=== PATIENT | male | born 1995 | race Caucasian/White ===

== ENCOUNTER 2017-09-25 16:00 | Emergency (ER) | payer BC ==
[2017-09-25] MEDS ORDERED: BABY ASPIRIN 81 MG CHEW PO ONE (16:08)
[2017-09-25 16:15] LABS: BASOPHIL % 0.2 % (0.0-0.4); Basophil (Absolute #) 0.02 (0-0.4); Eosinophil % 1.5 % (0.00-5.0); Eosinophil (Absolute #) 0.13 (0-0.5); Granulocyte Absolute (ANC) 6.28 (1.4-6.9); Granulocytes % 72.2 % (36.0-66.0); Hematocrit 46.9 % (42-50); Hemoglobin 15.8 gm/dl (12.5-18.0); Lymphocyte (Absolute #) 1.62 (1.0-4.6); Lymphocytes % 18.6 % (24.0-44.0); Mean Cell Volume 80.6 fl (78-100); Mean Corpuscular Hemoglobin 27.1 pg (26-32); Mean Corpuscular Hgb Concent. 33.7 g/dl (32-36); Mean Platelet Volume 12.1 fl (6-9.5); Monocyte (Absolute #) 0.65 (0.0-1.3); Monocytes % 7.5 % (0.0-12.0); Platelet Count 212 K/mm3 (150-450); Red Blood Count 5.82 M/mm3 (4.1-5.6); Red Cell Distribution Width 13.7 % (11.5-14.0); White Blood Count 8.7 K/mm3 (4.0-10.5)
[2017-09-25 16:27] LABS: INR 1.09 (0.8-3.0)
[2017-09-25 16:30] LABS: PTT 31.6 SECONDS (24.1-36.1)
[2017-09-25] MEDS ORDERED: BABY ASPIRIN 81 MG CHEW ONE (16:31)
[2017-09-25 16:32] LABS: D-DIMER QUANTITATION < 215 ng/mL (215-500)
[2017-09-25 16:37] LABS: ALBUMIN 5.3 g/dL (3.5-5.0); ALKALINE PHOSPHATASE 84 U/L (38-126); ANION GAP 18.4 MEQ/L (5-15); BLOOD UREA NITROGEN 12 mg/dL (9-20); CHLORIDE 103 mmol/L (98-107); Carbon Dioxide 27 mmol/L (22-30); Creatinine 1 0.92 mg/dL (0.66-1.25); Glucose 116 mg/dL (74-106); Potassium 3.9 mmol/L (3.5-5.1); SGOT/AST 33 U/L (17-59); SGPT/ALT 23 U/L (0-50); SODIUM 144 mmol/L (137-145); Total Protein 8.7 g/dL (6.3-8.2)
--- NOTE | 2017-09-25 16:37 | ERPHSYRPT ---
- History of Present Illness Time Seen by Provider: 09/25/17 16:29 Historian: patient Exam Limitations: no limitations Patient Subjective Stated Complaint: PT HERE FOR CHEST PAIN TO EPIGASTRIC AREA SINCE 0900 THIS MORNING WHILE PT WAS FISHING, HE STATES PAIN IT NOT ANY BETTER AND NOW HAS SOME SOB WITH IT, Triage Nursing Assessment: PT ALERT, WALKED IN, RESP EASY, CHEST CLEAR, ABD SOFT , PAIN IS REPRODUCABLE WITH PALAPTION Physician History: 22-year-old white male with history of high blood pressure migraines asthma Arrives with complaint of pain in the epigastric area sharp worse with moving and breathing associated with shortness of breath and nausea symptoms since 9: 30 this morning while he was fishing. He states he is feeling somewhat better now. Past medical history includes migraines, asthma, high blood pressure. Past surgical history includes tonsillectomy. Social history includes occasional alcohol use. Timing/Duration: today (9:30 today) Activities at Onset: other (fishing) Quality: sharpness Location: substernal, epigastric Chest Pain Radiation: no radiation Severity of Pain-Max: moderate Severity of Pain-Current: mild Modifying Factors: Improves With: breathing, movement, palpation, other (deep breathing) Associated Symptoms: nausea, abdominal pain (epigastric pain), shortness of breath, No vomiting, No palpitations, No heartburn, No cough, No hurts to breathe, No diaphoresis, No chills, No fever, No fatigue, No weakness, No swelling/lump in chest, No syncope, No rash, No headache, No dizziness, No edema , No back pain Prior Chest Pain/Cardiac Workup: no prior chest pain Nitro Today/Relief: no nitro taken today Aspirin Treatment Today: 81 mg x 4, provided by ED Allergies/Adverse Reactions: No Known Drug Allergies Allergy (Verified 09/25/17 16:22) Home Medications: Lisinopril 1 ea DAILY 09/25/17 [History] Hx Tetanus, Diphtheria Vaccination/Date Given: No Hx Influenza Vaccination/Date Given: No Hx Pneumococcal Vaccination/Date Given: No Immunizations Up to Date: Yes - Review of Systems Constitutional: No Fever, No Chills Eyes: No Symptoms Ears, Nose, & Throat: No Symptoms Respiratory: No Cough, No Dyspnea Cardiac: Chest Pain (epigastric pain) Abdominal/Gastrointestinal: Abdominal Pain (epigastric pain), Nausea, No Vomiting, No Diarrhea, No Constipation, No Hematemesis, No Hematochezia, No Melena, No Dysphagia, No Appetite Changes Genitourinary Symptoms: No Dysuria Musculoskeletal: No Back Pain, No Neck Pain Skin: No Rash Neurological: No Dizziness, No Focal Weakness, No Sensory Changes Psychological: No Symptoms All Other Systems: Reviewed and Negative - Past Medical History Pertinent Past Medical History: Yes Neurological History: Migraines History: Other Other Medical History: ASTHMA - Past Surgical History Past Surgical History: Yes Neuro Surgical History: No Pertinent History Cardiac: No Pertinent History Respiratory: No Pertinent History Gastrointestinal: No Pertinent History Genitourinary: No Pertinent History Musculoskeletal: No Pertinent History Male Surgical History: No Pertinent History Other Surgical History: TONSILS - Social History Smoking Status: Never smoker Exposure to second hand smoke: Yes Drug Use: none Patient Lives Alone: No - Nursing Vital Signs Nursing Vital Signs: Initial Vital Signs Temperature 97.8 F 09/25/17 16:00 Pulse Rate 100 H 09/25/17 16:00 Respiratory Rate 16 09/25/17 16:00 Blood Pressure 161/98 09/25/17 16:00 O2 Sat by Pulse Oximetry 98 09/25/17 16:00 Pain Scale Pain Intensity 3 - Physical Exam General Appearance: mild distress Eye Exam: PERRL/EOMI, eyes nml inspection Ears, Nose, Throat Exam: normal ENT inspection, moist mucous membranes Neck Exam: normal inspection, non-tender, supple, full range of motion Respiratory Exam: normal breath sounds, lungs clear, No respiratory distress Cardiovascular Exam: regular rate/rhythm, normal heart sounds, normal peripheral pulses Gastrointestinal/Abdomen Exam: soft, normal bowel sounds, tenderness ( epigastric tenderness), No distention, No mass, No guarding, No ecchymosis, No pulsatile mass, No rebound, No hernia, No hepatomegaly Back Exam: normal inspection, No CVA tenderness, No vertebral tenderness Extremity Exam: normal inspection, normal range of motion Neurologic Exam: alert, oriented x 3, cooperative, route inspector II-XII nml as tested, normal mood/affect, sensation nml, No motor deficits, No sensory deficit Skin Exam: normal color, warm, dry SpO2 Interpretation: normal (98%) SpO2: 98 Oxygen Delivery: Room Air - Course Nursing assessment & vital signs reviewed: Yes EKG Interpreted by Me: RATE (99 bpm), Sinus Rhythm, NORMAL AXIS, Other (EKG: Sinus rhythm, 99 beats per minute, right axis deviation, no acute ST or T wave changes noted) - Radiology Exams Chest X-ray Interpretation: Interpreted by me, No Pneumonia, No Pneumothorax Ordered Tests: Active Orders 24 hr Category Date Time Status Cash Person STAT Care 09/25/17 16:09 Active EKG-ER Only STAT Care 09/25/17 16:08 Active IV Insertion STAT Care 09/25/17 16:08 Active Pulse Oximetry (ED) STAT Care 09/25/17 16:08 Active CHEST 1 VIEW (PORTABLE) Stat Exams 09/25/17 16:09 Taken AMYLASE Stat Lab 09/25/17 16:56 Completed CBC W DIFF Stat Lab 09/25/17 16:08 Completed CMP Stat Lab 09/25/17 16:08 Completed D-DIMER QUANTITATION Stat Lab 09/25/17 16:08 Completed LIPASE Stat Lab 09/25/17 16:56 Completed PROTIME WITH INR Stat Lab 09/25/17 16:08 Completed PTT Stat Lab 09/25/17 16:08 Completed TROPONIN Q3H Lab 09/25/17 16:08 Completed TROPONIN Q3H Lab 09/25/17 19:15 Ordered TROPONIN Q3H Lab 09/25/17 22:15 Ordered TROPONIN Q3H Lab 09/26/17 01:15 Ordered TROPONIN Q3H Lab 09/26/17 04:15 Ordered Medication Summary Discontinued Medications Generic Name Dose Route Start Last Admin Trade Name Freq PRN Reason Stop Dose Admin Aspirin 324 mg 09/25/17 16:08 09/25/17 16:32 Baby Aspirin 81 Mg Chew PO 09/25/17 16:09 324 mg STAT ONE Administration Aspirin Confirm 09/25/17 16:31 Baby Aspirin 81 Mg Chew Administered 09/25/17 16:32 Dose 324 mg .ROUTE .STK-MED ONE Lab/Rad Data: Laboratory Result Diagrams 09/25/17 16:08 09/25/17 16:08 Laboratory Results 09/25/17 09/25/17 09/25/17 Range/Units 16:56 16:08 16:08 WBC (4.0-10.5) K/mm3 RBC (4.1-5.6) M/mm3 Hgb (12.5-18.0) gm/dl Hct (42-50) % MCV (78-100) fl MCH (26-32) pg MCHC (32-36) g/dl RDW (11.5-14.0) % Plt Count (150-450) K/mm3 MPV (6-9.5) fl Gran % (36.0-66.0) % Eos # (Auto) (0-0.5) Absolute Lymphs (auto) (1.0-4.6) Absolute Monos (auto) (0.0-1.3) Lymphocytes % (24.0-44.0) % Monocytes % (0.0-12.0) % Eosinophils % (0.00-5.0) % Basophils % (0.0-0.4) % Absolute Granulocytes (1.4-6.9) Basophils # (0-0.4) PT 12.7 (8.83-12.87) SECONDS INR 1.09 (0.8-3.0) APTT 31.6 (24.1-36.1) SECONDS D-Dimer < 215 L (215-500) ng/mL Sodium (137-145) mmol/L Potassium (3.5-5.1) mmol/L Chloride (98-107) mmol/L Carbon Dioxide (22-30) mmol/L Anion Gap (5-15) MEQ/L BUN (9-20) mg/dL Creatinine (0.66-1.25) mg/dL Estimated GFR ML/MIN Glucose (74-106) mg/dL Calcium (8.4-10.2) mg/dL Total Bilirubin (0.2-1.3) mg/dL AST (17-59) U/L ALT (0-50) U/L Alkaline Phosphatase (38-126) U/L Troponin I < 0.012 (0.000-0.034) ng/mL Serum Total Protein (6.3-8.2) g/dL Albumin (3.5-5.0) g/dL Amylase 51 (30-110) U/L Lipase 30 (23-300) U/L 09/25/17 09/25/17 Range/Units 16:08 16:08 WBC 8.7 (4.0-10.5) K/mm3 RBC 5.82 H (4.1-5.6) M/mm3 Hgb 15.8 (12.5-18.0) gm/dl Hct 46.9 (42-50) % MCV 80.6 (78-100) fl MCH 27.1 (26-32) pg MCHC 33.7 (32-36) g/dl RDW 13.7 (11.5-14.0) % Plt Count 212 (150-450) K/mm3 MPV 12.1 H (6-9.5) fl Gran % 72.2 H (36.0-66.0) % Eos # (Auto) 0.13 (0-0.5) Absolute Lymphs (auto) 1.62 (1.0-4.6) Absolute Monos (auto) 0.65 (0.0-1.3) Lymphocytes % 18.6 L (24.0-44.0) % Monocytes % 7.5 (0.0-12.0) % Eosinophils % 1.5 (0.00-5.0) % Basophils % 0.2 (0.0-0.4) % Absolute Granulocytes 6.28 (1.4-6.9) Basophils # 0.02 (0-0.4) PT (8.83-12.87) SECONDS INR (0.8-3.0) APTT (24.1-36.1) SECONDS D-Dimer (215-500) ng/mL Sodium 144 (137-145) mmol/L Potassium 3.9 (3.5-5.1) mmol/L Chloride 103 (98-107) mmol/L Carbon Dioxide 27 (22-30) mmol/L Anion Gap 18.4 H (5-15) MEQ/L BUN 12 (9-20) mg/dL Creatinine 0.92 (0.66-1.25) mg/dL Estimated GFR > 60.0 ML/MIN Glucose 116 H (74-106) mg/dL Calcium 10.0 (8.4-10.2) mg/dL Total Bilirubin 0.50 (0.2-1.3) mg/dL AST 33 (17-59) U/L ALT 23 (0-50) U/L Alkaline Phosphatase 84 (38-126) U/L Troponin I (0.000-0.034) ng/mL Serum Total Protein 8.7 H (6.3-8.2) g/dL Albumin 5.3 H (3.5-5.0) g/dL Amylase (30-110) U/L Lipase (23-300) U/L - Progress Progress: improved Air Movement: fair Progress Note: 09/25/17 17:52 22-year-old white male arrives with complaint of pain in his epigastric region symptoms since this morning while he was fishing patient has pain in the epigastric region worse with moving and breathing he is tender with palpation in the epigastric region patient's vital signs are normal EKG normal sinus rhythm right axis deviation no acute ST or T wave changes are noted troponin is normal amylase and lipase are normal d-dimer is within normal limits CBC within normal limits chest x-ray no acute disease processes noted (my read). The patient was given aspirin 324 mg orally he states he is feeling better. I have offered to go ahead and obtain repeat troponin 3 hours after last draw patient does not want to do this he wants to be discharged. I told him that we do the repeat troponin to rule out cardiac etiology of the patient's pain. He states he would rather go home. Will go ahead and discharge patient he is return home rest plenty of fluids Tylenol as needed every 4 hours she is to return for acute distress or for severe symptoms. - Departure Time of Disposition: 17:55 Departure Disposition: Home Clinical Impression: Epigastric pain Condition: Fair Critical Care Time: No Referrals: DOCTOR,NO FAMILY [Primary Care Provider] - Additional Instructions: Return home. Rest. Plenty of fluids. Tylenol every 4 hours as needed for pain. Return for acute distress or for severe symptoms. Follow-up with your family doctor. your x-rays have been preliminarily read , they will be reread tomorrow, you'll be contacted if any descrepancies are noted.
[2017-09-25 17:04] LABS: AMYLASE 51 U/L (30-110); LIPASE 30 U/L (23-300)
[2017-09-25 18:04] VITALS: BP 116/90; PULSE 80; O2SAT 96
--- NOTE | 2017-09-25 21:42 | XRAY ---
Indication: Chest pain. Comparison: February 18, 2014. Portable chest demonstrates new lingular infiltrate/atelectasis and tiny left effusion. Remaining heart, right lung, and bony thorax normal. Comment: Left lung findings not reported on preliminary interpretation by the interpreting ER clinician. Telephone report given to Dr. Squires in the ER at 2135 hrs. on September 25, 2017.
== END 2017-09-25 18:05 | disposition home or self-care (01) ==
LOC: ED 16:00
DX: R10.13 Epigastric pain (principal); J45.909 Unspecified asthma, uncomplicated
CPT/HCPCS: 36000; 36415; 71045; 80053; 82150; 83690; 84484; 85025; 85379; 85610; 85730; 93005; 93041; 99284; A9270-GY

== ENCOUNTER 2024-01-12 22:09 | Emergency (ER) | payer BC, OTHER ==
[2024-01-12 22:19] VITALS: TEMP 96.9
--- NOTE | 2024-01-12 22:54 | ERPHSYRPT ---
- History of Present Illness Time Seen by Provider: 01/13/24 00:19 Source: patient Exam Limitations: no limitations Patient Subjective Stated Complaint: my tooth started hurting about 9pm and then I started vomiting Triage Nursing Assessment: Pt brought back to ER in wheelchair, pt's mother at bedside. Pt is alert and oriented x4. Pt c/o tooth pain that started at 9pm tonight and then he started vomiting. Pt has a dental caries to left lower tooth. Pt has vomited x6 at home, currently dry heaving here. Physician History: 28-year-old male otherwise healthy presents for emergency department for evaluation of dental pain that started 9 PM followed by nausea and vomiting. Patient states he vomited 6 times prior to arrival. Upon arrival patient was heaving. Patient denies pain. No abdominal pain no chest pain no shortness of breath. No diaphoresis. Patient has multiple carious teeth particularly at the left lower jaw involving teeth #1718 and 19. Tooth #18 is exquisitely tender. No obvious swelling. No intraoral lesions. No sublingual swelling. No Katharina's. Symptoms are mild to moderate in intensity. No specific worsening or improving factors. Patient otherwise feels well. He voices no other complaints or concerns at this time. Timing/Duration: today Severity: moderate Modifying Factors: Improves With: nothing Associated Symptoms: nausea, vomiting Allergies/Adverse Reactions: No Known Drug Allergies Allergy (Verified 01/12/24 22:25) Hx Tetanus, Diphtheria Vaccination/Date Given: (unknown) Hx Influenza Vaccination/Date Given: No Hx Pneumococcal Vaccination/Date Given: No Travel Risk - International Travel Have you traveled outside of the country in past 3 weeks: No - Emerging Infectious Disease Are you exhibiting symptoms associated with any current EIDs: Yes Symptoms: Vomitting - Review of Systems Constitutional: No Symptoms, No Fever, No Chills Eyes: No Symptoms Ears, Nose, & Throat: No Symptoms Respiratory: No Symptoms, No Cough, No Dyspnea Cardiac: No Symptoms, No Chest Pain, No Edema, No Syncope Abdominal/Gastrointestinal: No Symptoms, No Abdominal Pain, No Nausea, No Vomiting, No Diarrhea Genitourinary Symptoms: No Symptoms, No Dysuria Musculoskeletal: No Symptoms, No Back Pain, No Neck Pain Skin: No Symptoms, No Rash Neurological: No Symptoms, No Dizziness, No Focal Weakness, No Sensory Changes Psychological: No Symptoms Endocrine: No Symptoms Hematologic/Lymphatic: No Symptoms Immunological/Allergic: No Symptoms All Other Systems: Reviewed and Negative - Past Medical History Pertinent Past Medical History: Yes Neurological History: Migraines Respiratory History: Asthma History: Other Other Medical History: ASTHMA - Past Surgical History Past Surgical History: Yes Neuro Surgical History: No Pertinent History Cardiac: No Pertinent History Respiratory: No Pertinent History Gastrointestinal: No Pertinent History Genitourinary: No Pertinent History Musculoskeletal: No Pertinent History Male Surgical History: No Pertinent History Other Surgical History: TONSILS - Social History Smoking Status: Never smoker Exposure to second hand smoke: No Drug Use: none Patient Lives Alone: No - Social Determinants of Health Will the patient participate in the screening: Declined to provide - Nursing Vital Signs Nursing Vital Signs: Initial Vital Signs Temperature 96.9 F 01/12/24 22:17 Pulse Rate 87 01/12/24 22:17 Respiratory Rate 18 01/12/24 22:17 Blood Pressure 141/90 01/12/24 22:17 O2 Sat by Pulse Oximetry 100 01/12/24 22:17 Pain Scale Pain Intensity 4 - Physical Exam General Appearance: no apparent distress, alert Eye Exam: PERRL/EOMI, eyes nml inspection Ears, Nose, Throat Exam: normal ENT inspection, pharynx normal, moist mucous membranes Neck Exam: normal inspection, non-tender, supple, full range of motion Respiratory Exam: normal breath sounds, lungs clear, airway intact, No respiratory distress Cardiovascular Exam: regular rate/rhythm, normal heart sounds, normal peripheral pulses Gastrointestinal/Abdomen Exam: soft, normal bowel sounds, No tenderness, No mass Back Exam: normal inspection, normal range of motion, No CVA tenderness, No vertebral tenderness Extremity Exam: normal inspection, normal range of motion, pelvis stable Neurologic Exam: alert, oriented x 3, cooperative, normal mood/affect, sensation nml, No motor deficits Skin Exam: normal color, warm, dry, No rash Lymphatic Exam: No adenopathy SpO2 Interpretation: normal SpO2: 100 O2 Delivery: Room Air - Course Nursing assessment & vital signs reviewed: Yes Ordered Tests: Active Orders 24 hr Category Date Time Status IV Insertion STAT Care 01/12/24 22:53 Active CBC W DIFF Stat Lab 01/12/24 23:00 Completed CMP Stat Lab 01/12/24 23:00 Completed Medication Summary Discontinued Medications Generic Name Dose Route Start Last Admin Trade Name Freq PRN Reason Stop Dose Admin Amoxicillin/Clavulanate Potassium Confirm 01/13/24 00:24 Amox Tr/Potassium Clavulanate 875 Mg Tablet Administered 01/13/24 00:25 Dose 875 mg .ROUTE .STK-MED ONE Amoxicillin/Clavulanate Potassium 875 mg 01/13/24 00:30 01/13/24 00:32 Amox Tr/Potassium Clavulanate 875 Mg Tablet PO 01/13/24 00:31 875 mg STAT ONE Administration Sodium Chloride 1,000 mls @ 999 mls/hr 01/12/24 22:53 01/12/24 23:14 Sodium Chloride 0.9% 1000 Ml IV 01/12/24 23:53 999 mls/hr .Q1H1M STA Administration Sodium Chloride Confirm 01/12/24 23:13 Sodium Chloride 0.9% 1000 Ml Administered 01/12/24 23:14 Dose 1,000 mls @ ud .ROUTE .STK-MED ONE Ketorolac Tromethamine 30 mg 01/13/24 00:26 01/13/24 00:26 Ketorolac Tromethamine 30 Mg/Ml Inj IM 01/13/24 00:27 30 mg STAT ONE Administration Ketorolac Tromethamine Confirm 01/13/24 00:24 Ketorolac Tromethamine 30 Mg/Ml Inj Administered 01/13/24 00:25 Dose 30 mg .ROUTE .STK-MED ONE Ondansetron HCl 4 mg 01/12/24 22:53 01/12/24 23:14 Ondansetron Hcl 4 Mg/2 Ml Vial IV 01/12/24 22:54 4 mg STAT ONE Administration Ondansetron HCl Confirm 01/12/24 23:12 Ondansetron Hcl 4 Mg/2 Ml Vial Administered 01/12/24 23:13 Dose 4 mg .ROUTE .STK-MED ONE Lab/Rad Data: Laboratory Result Diagrams 01/12/24 23:00 01/12/24 23:00 Laboratory Results 01/12/24 01/12/24 Range/Units 23:00 23:00 WBC 6.4 (4.23-9.07) x10^3/uL RBC 5.45 (4.63-6.08) x10^6/uL Hgb 14.5 (13.7-17.5) g/dL Hct 44.0 (40.1-51.0) % MCV 80.7 (79.0-92.2) fL MCH 26.6 (25.7-32.2) pg MCHC 33.0 (32.3-36.5) g/dL RDW 12.9 (11.6-14.4) % Plt Count 205 (163-337) x10^3/uL MPV 10.9 (9.4-12.4) fL Gran % 56.6 (34.0-67.9) % Immature Gran % (Auto) 0.5 H (0.001-0.429) % Nucleat RBC Rel Count 0.0 (0.00-0.2) % Eos # (Auto) 0.26 (0.04-0.54) x10^3/uL Immature Gran # (Auto) 0.03 (0.001-0.031) x10^3u/L Absolute Lymphs (auto) 1.97 (1.32-3.57) x10^3/uL Absolute Monos (auto) 0.49 (0.30-0.82) x10^3/uL Absolute Nucleated RBC 0.00 (0.00-0.012) x10^3u/L Lymphocytes % 30.7 (21.8-53.1) % Monocytes % 7.6 (5.3-12.2) % Eosinophils % 4.0 (0.8-7.0) % Basophils % 0.6 (0.2-1.2) % Absolute Granulocytes 3.63 (1.78-5.38) x10^3/uL Basophils # 0.04 (0.01-0.08) x10^3/uL Sodium 140 (135-145) mmol/L Potassium 3.7 (3.5-5.1) mmol/L Chloride 105 (98-107) mmol/L Carbon Dioxide 24 (22-30) mmol/L Anion Gap 15.3 H (5-15) MEQ/L BUN 17 (9-20) mg/dL Creatinine 0.85 (0.66-1.25) mg/dL Estimated GFR 122.1 ML/MIN Glucose 116 H (74-106) mg/dL Calcium 9.2 (8.4-10.2) mg/dL Total Bilirubin 0.30 (0.2-1.3) mg/dL AST 39 (17-59) U/L ALT 31 (0-50) U/L Alkaline Phosphatase 63 (38-126) U/L Serum Total Protein 7.9 (6.3-8.2) g/dL Albumin 4.6 (3.5-5.0) g/dL - Progress Progress: improved Progress Note: 28-year-old male presents to our ED with left lower jaw dental pain. Symptoms started at 9 PM. Patient later began to vomit. He vomited approximately 6 times prior to arrival. Physical exam reveals carious teeth at tooth #1718 and 19 particularly. Tooth 18 appears to have a dental abscess. Palpation to this tooth reproduces pain. Oral exam otherwise nonremarkable. Laboratory workup essentially within normal limits. Patient received Toradol Augmentin and Zofran. IV fluids infused. Patient reassessed. He states he feels better. Patient advised to follow-up with a dentist. He agrees to do so. A prescription for Zofran Augmentin and Toradol forwarded to patient's pharmacy. Patient states he is ready for discharge. Mother at bedside. They voiced no other complaints or concerns at this time. Patient tolerated p.o. no nausea and vomiting after administration of Zofran. Portions of this note were created with voice recognition technology. There may be grammatical, spelling, punctuation or sound alike errors Complexity of problem addressed is moderate acute complicated no critical care time complex of data reviewed and analyzed is moderate. Test ordered chest reviewed results analyzed and correlated clinically with history and physical exam. Risk of complication and or risk of morbidity/mortality of patient management is moderate. A prescription for Augmentin Zofran and Toradol forwarded to patient's pharmacy. Vital stable. Time spent to discharge patient is approximately 15 minutes. Plan of care established for shared decision making. No social determinants of health present to impede follow-up. Portions of this note were created with voice recognition technology. There may be grammatical, spelling, punctuation or sound alike errors 01/13/24 00:46 Counseled pt/family regarding: diagnosis, need for follow-up, rad results - Departure Departure Disposition: Home Clinical Impression: Dental abscess, Nausea and vomiting, Pain, dental, Carious teeth Condition: Stable Critical Care Time: No Referrals: TERA COREY MD [Primary Care Provider] - Follow up/PCP as directed Additional Instructions: Discharge/Care Plan GAGE CANNON was seen on 01/13/24 in the Emergency Room. The patient was counseled regarding Diagnosis,Lab results, Imaging studies, need for follow up and when to return to the Emergency Room. Prescriptions given: Discharge Note I have spoken with the patient and/or caregivers. I have explained the patient's condition, diagnosis and treatment plan based on the information available to me at this time. I have answered the patient's and/or caregiver's questions and addressed any concerns. The patient and/or caregivers have as good understanding of the patient's diagnosis, condition and treatment plan as can be expected at this point. The vital signs have been stable. The patient's condition is stable and appropriate for discharge from the emergency department. The patient will pursue further outpatient evaluation with the primary care physician or other designated or consulting physician as outlined in the discharge instructions. The patient and/or caregivers are agreeable to this plan of care and follow-up instructions have been explained in detail. The patient and/or caregivers have received these instruction. The patient/and or caregivers are aware that any significant change in condition or worsening of symptoms should prompt an immediate return to this or the closest emergency department or call 911. Prescriptions: Ondansetron ODT 4 MG [Zofran Odt 4 mg] 4 mg PO Q6H PRN PRN #10 tablet PRN Reason: Vomiting Amox Tr/Potass Clav. 875 mg [Augmentin 875-125 Tablet] 875 mg PO BID 7 Days #14 tablet Ketorolac Trometh 10 mg Tab [TORAdol 10 MG TABLET] 10 mg PO TID 5 Days #15 tablet
[2024-01-12 23:08] LABS: Absolute Neutrophil Ct (ANC) 3.63 x10^3/uL (1.78-5.38); BASOPHIL % 0.6 % (0.2-1.2); Basophil (Absolute #) 0.04 x10^3/uL (0.01-0.08); Eosinophil (Absolute #) 0.26 x10^3/uL (0.04-0.54); Hemoglobin 14.5 g/dL (13.7-17.5); IMMATURE GRAN # 0.03 x10^3u/L (0.001-0.031); IMMATURE GRAN % 0.5 % (0.001-0.429); Lymphocyte (Absolute #) 1.97 x10^3/uL (1.32-3.57); Lymphocytes % 30.7 % (21.8-53.1); Mean Cell Volume 80.7 fL (79.0-92.2); Mean Corpuscular Hemoglobin 26.6 pg (25.7-32.2); Mean Platelet Volume 10.9 fL (9.4-12.4); Monocyte (Absolute #) 0.49 x10^3/uL (0.30-0.82); Monocytes % 7.6 % (5.3-12.2); Neutrophil % 56.6 % (34.0-67.9); Platelet Count 205 x10^3/uL (163-337); Red Blood Count 5.45 x10^6/uL (4.63-6.08); Red Cell Distribution Width 12.9 % (11.6-14.4); White Blood Count 6.4 x10^3/uL (4.23-9.07)
[2024-01-12] MEDS ORDERED: Zofran 4 MG/2 ML VIAL ONE (23:12)
[2024-01-12] MEDS ORDERED: Sodium Chloride 0.9% 1000 ML 1,000 ML ONE (23:13)
[2024-01-12] MEDS: Zofran 4 MG/2 ML VIAL IV ONE (23:14)
[2024-01-12] MEDS: Sodium Chloride 0.9% 1000 ML 1,000 ML IV STA (23:14)
[2024-01-12 23:21] LABS: ALBUMIN 4.6 g/dL (3.5-5.0); ANION GAP 15.3 MEQ/L (5-15); BILIRUBIN,TOTAL 0.3 mg/dL (0.2-1.3); Calcium 9.2 mg/dL (8.4-10.2); Creatinine 1 0.85 mg/dL (0.66-1.25); EST GLOMERULAR FILTRATION RATE 122.1 ML/MIN; Potassium 3.7 mmol/L (3.5-5.1); Total Protein 7.9 g/dL (6.3-8.2)
[2024-01-13] MEDS ORDERED: TORAdol 30 mg Injection ONE (00:24)
[2024-01-13] MEDS ORDERED: Augmentin 875-125 Tablet ONE (00:24)
[2024-01-13] MEDS: TORAdol 30 mg Injection IM ONE (00:26)
[2024-01-13] MEDS: Augmentin 875-125 Tablet PO ONE (00:32)
[2024-01-13 01:02] VITALS: BP 130/86; PULSE 63; RESP 16; O2SAT 96
== END 2024-01-13 00:58 | disposition home or self-care (01) ==
LOC: ED 22:09
DX: R11.2 Nausea with vomiting, unspecified (principal); K08.89 Other specified disorders of teeth and supporting structures; K04.7 Periapical abscess without sinus
CPT/HCPCS: 36415; 80053; 85025; 96374; 99284; J1885; J2405; A9270-GY